=== PATIENT | female | born 1935 | race Caucasian/White ===

== ENCOUNTER 2016-06-09 13:25 | Emergency (ER) | payer OTHER ==
--- NOTE | 2016-06-09 13:50 | EDPHY ---
H & P Stated Complaint: Coughing up clear mucous;feels lightheaded/dizzy today Time Seen by Provider: 06/09/16 13:50 - Personal History Current Tetanus Diphtheria and Acellular Pertussis (TDAP): Yes - Medical/Surgical History Hx Chronic Respiratory Disease: Yes Other PMH: MS. thyroid - Social History Smoking Status: Former smoker Constitutional: Initial Vital Signs Temperature (C) 36.8 C 06/09/16 13:30 Heart Rate 84 06/09/16 13:30 Respiratory Rate 18 06/09/16 13:30 Blood Pressure 143/79 H 06/09/16 13:30 O2 Sat (%) 94 06/09/16 13:30 O2 Delivery Mode Room Air Allergies/Adverse Reactions: No Known Allergies Allergy (Verified 06/09/16 13:30) Home Medications: Medication Instructions Recorded Cephalexin [Keflex (RX)] 500 mg PO TID #30 cap 06/09/16 Levothyroxine [Synthroid 88 mcg 88 mcg PO DAILY06 06/09/16 (*)] Medical Decision Making ED Course/Re-evaluation: CHIEF COMPLAINT: Cough, lightheadedness HISTORY OF PRESENT ILLNESS: The patient is an 80 y/o female complaining of persistent chronic cough and lightheadedness onset today. She has a history of bronchiectasis for which she is followed by her spray maker. She complains of associated sternal chest pain that is reproducible with palpation and deep breathing. Denies dysuria, polyuria. REVIEW OF SYSTEMS: A 10 point review of systems was performed and is negative with the exception of the elements mentioned in the history of present illness. PHYSICAL EXAM: HR, BP, O2 Sat, RR. Temp noted General Appearance: Alert, well hydrated, appropriate, and non-toxic appearing. Head: Atraumatic without scalp tenderness or obvious injury Eyes: Pupils equal, round, reactive to light and accommodation, EOMI, no trauma , no injection. Ears: Clear bilaterally, no perforation, normal landmarks Nose: Atraumatic, no rhinorrhea, clear. Throat: There is no erythema or exudates, no lesions, normal tonsils, mucus membranes moist. Neck: Supple, 2+ carotid upstroke, nontender, no lymphadenopathy. Respiratory: No retractions, no distress, no wheezes, and no accessory muscle use. Lungs are clear to auscultation bilaterally. Cardiovascular: Regular rate and rhythm, no murmurs, rubs, or gallops. Bilateral carotid, radial, dorsalis pedis, and posterior tibial pulses intact. Good capillary refill all extremities. Gastrointestinal: Abdomen is soft, nontender, non-distended, no masses, no rebound, no guarding, no peritoneal signs. Musculoskeletal: Normal active ROM of all extremities, atraumatic. Neurological: Alert, appropriate, and interactive. The patient has normal DTRs and non-focal cranial nerves, motor, sensory, and cerebellar exam. Skin: No rashes, good turgor, no nodules on palpation. Past medical history: UTIs, IBS, optic neuritis - possible MS?, bronchiectasis Past surgical history: Noncontributory Family history: Noncontributory Social history: Nonsmoker [place]: Dr. Chaudhry Prior records reviewed including admission from 08/08/2010 for chest pain. DIAGNOSTICS/PROCEDURES/CRITICAL CARE TIME: Study: Chest x-ray Indication: Cough Results: Chest x-ray was obtained. The results of the study are 1. Cystic bronchiectasis in the right middle lobe with bilateral apical pleuroparenchymal scarring and lingular scarring, similar to previous study. 2. COPD with hyperinflation. 3. No pleural effusion, pneumothorax, or definite acute pneumonia. 4. Consider CT chest imaging if there is continued clinical concern for acute pneumonia or worsening MAC. The study was read by the radiologist, Dr. Jones. I viewed the images myself on the PACS system. The 12 lead EKG was interpreted by myself. Sinus rhythm rate 82. See hard copy and/or "tracemaster" electronic copy for interpretation. DIFFERENTIAL DIAGNOSIS: The differential diagnosis for the patient's shortness of breath and hypoxemia included but was not limited to pneumonia, myocardial infarction, acute mountain sickness, high altitude pulmonary edema, congestive heart failure, and pulmonary embolus. MEDICAL DECISION MAKING: This is an 80 y/o female who presents with a chronic cough and known bronchiectasis also complaining of mild lightheadedness onset today. Lung sounds are unremarkable and she appears well on exam. IV established. Labs drawn including CBC, CHEM, BNP, troponin, d-dimer. Chest x-ray and EKG ordered. Labs are unremarkable. Chest x-ray is unchanged from previous. EKG normal. Plan for UA. UA indicates UTI. Patient will receive one dose of Keflex here and will be discharged with a script for Keflex. She will follow up with her PCP as needed. Return precautions given. She is comfortable with this plan. - Data Points Laboratory Results: Laboratory Results 06/09/16 14:00 06/09/16 14:00 06/09/16 06/09/16 15:45 14:00 WBC 5.73 10^3/uL (3.80-9.50) RBC 4.98 10^6/uL (4.18-5.33) Hgb 15.7 g/dL (12.6-16.3) Hct 45.6 % (38.0-47.0) MCV 91.6 fL (81.5-99.8) MCH 31.5 pg (27.9-34.1) MCHC 34.4 g/dL (32.4-36.7) RDW 13.2 % (11.5-15.2) Plt Count 260 10^3/uL (150-400) MPV 8.5 L fL (8.7-11.7) Neut % (Auto) 47.2 % (39.3-74.2) Lymph % (Auto) 38.4 % (15.0-45.0) [place] % (Auto) 11.9 % (4.5-13.0) Eos % (Auto) 1.4 % (0.6-7.6) Baso % (Auto) 0.9 % (0.3-1.7) Nucleat RBC Rel Count 0.0 % (0.0-0.2) Absolute Neuts (auto) 2.71 10^3/uL (1.70-6.50) Absolute Lymphs (auto) 2.20 10^3/uL (1.00-3.00) Absolute Monos (auto) 0.68 10^3/uL (0.30-0.80) Absolute Eos (auto) 0.08 10^3/uL (0.03-0.40) Absolute Basos (auto) 0.05 10^3/uL (0.02-0.10) Absolute Nucleated RBC 0.00 10^3/uL (0-0.01) Immature Gran % 0.2 % (0.0-1.1) Immature Gran # 0.01 10^3/uL (0.00-0.10) D-Dimer 0.43 ug/mLFEU (0.00-0.50) Sodium 143 mEq/L (134-144) Potassium 4.3 mEq/L (3.5-5.2) Chloride 107 mEq/L (97-110) Carbon Dioxide 23 mEq/l (22-31) Anion Gap 13 mEq/L (8-16) BUN 12 mg/dL (7-23) Creatinine 0.7 mg/dL (0.6-1.0) Estimated GFR > 60 Glucose 96 mg/dL (70-100) Calcium 9.4 mg/dL (8.5-10.4) Troponin I < 0.012 ng/mL (0-0.034) NT-Pro-B Natriuret Pep 118 pg/mL (0-450) Urine Color YELLOW Urine Appearance CLEAR Urine pH 7.0 (5.0-7.5) Ur Specific [place] 1.009 (1.002-1.030) Urine Protein NEGATIVE (NEGATIVE) Urine Ketones NEGATIVE (NEGATIVE) Urine Blood NEGATIVE (NEGATIVE) Urine Nitrate NEGATIVE (NEGATIVE) Urine Bilirubin NEGATIVE (NEGATIVE) Urine Urobilinogen NEGATIVE EU (0.2-1.0) Ur Leukocyte Esterase TRACE H (NEGATIVE) Urine RBC 5-10 H /hpf (0-3) Urine WBC 1-3 /hpf (0-3) Ur Epithelial Cells TRACE /lpf (NONE-1+) Ur Culture Indicated? INDICATED H (NI) Urine Glucose NEGATIVE (NEGATIVE) Medications Given: Discontinued Medications Cephalexin HCl (Keflex) 500 mg PO EDNOW ONE PRN Reason: Protocol Stop: 06/09/16 16:14 Last Admin: 06/09/16 16:15 Dose: 500 mg Departure - Departure Disposition: Home, Routine, Self-Care Clinical Impression: UTI (urinary tract infection), Cough Condition: Good Instructions: Urinary Tract Infection in Women (ED) Additional Instructions: 1. Take Keflex as prescribed. Be sure to finish the entire prescription even if you feel better. 2. Call the ED in 48 hours at [phone] to get your urine culture results. 3. Follow up with your primary care provider for symptoms not improved over the next 3-4 days. 4. Use Tylenol as prescribed on the package when needed for pain or fever. Not to exceed 1 week of use. 5. Return to the ED for any worsening of condition. Referrals: Ann Perez MD [Primary Care Provider] - As per Instructions Prescriptions: Cephalexin [Keflex (RX)] 500 mg PO TID #30 cap
--- NOTE | 2016-06-09 13:55 | CPEKG ---
Heart Rate: 82 RR Interval: 732 P-R Interval: 152 QRSD Interval: 78 QT Interval: 364 QTC Interval: 425 P Glen: 76 QRS Glen: 19 T Wave Glen: 37 EKG Severity - NORMAL ECG - EKG Impression: SINUS RHYTHM Electronically Signed By: Wilder Langley 09-Jun-2016 20:16:23
[2016-06-09 14:17] LABS: % IMMATURE GRANULYOCYTES 0.2 % (0.0-1.1); ABSOLUTE IMMATURE GRANULOCYTES 0.01 10^3/uL (0.00-0.10); ADD DIFF? NO; ADD MORPH? NO; ADD SCAN? NO; ATYPICAL LYMPHOCYTE FLAG 10 (0-99); FRAGMENT RBC FLAG 10 (0-99); HEMATOCRIT 45.6 % (38.0-47.0); HEMOGLOBIN 15.7 g/dL (12.6-16.3); LEFT SHIFT FLG 0 (0-99); LIPEMIA HEMOLYSIS FLAG 90 (0-99); MEAN CELL HEMOGLOBIN 31.5 pg (27.9-34.1); MEAN CELL HEMOGLOBIN CONCENTR. 34.4 g/dL (32.4-36.7); MEAN CELL VOLUME 91.6 fL (81.5-99.8); MEAN PLATELET VOLUME 8.5 fL (8.7-11.7); PLATELET CLUMPS FLAG 0 (0-99); PLATELET COUNT 260 10^3/uL (150-400); RED BLOOD CELL COUNT 4.98 10^6/uL (4.18-5.33); RED CELL DISTRIBUTION WIDTH 13.2 % (11.5-15.2)
[2016-06-09 14:35] LABS: ANION GAP 13 mEq/L (8-16); CALCIUM 9.4 mg/dL (8.5-10.4); CARBON DIOXIDE 23 mEq/l (22-31); CHLORIDE 107 mEq/L (97-110); CREATININE 0.7 mg/dL (0.6-1.0); GLOMERULAR FILTRATION RATE > 60; GLUCOSE 96 mg/dL (70-100); POTASSIUM 4.3 mEq/L (3.5-5.2); SODIUM 143 mEq/L (134-144)
[2016-06-09 14:46] LABS: TROPONIN I < 0.012 ng/mL (0-0.034)
--- NOTE | 2016-06-09 15:03 | DX ---
Chest, Two Views June 09, 2016, 1355 Hours History: Cough, R05, Mycobacterium avium complex. Comparison: June 2015, August 2015. Findings: Cardiac silhouette is within normal range. Hyperinflation of the lungs and flattening of the hemidiaphragms similar to previous study. Pleuroparenchymal scarring bilateral lung apices, right greater than left, also similar to previous studies. Cystic bronchiectasis in the right middle lobe also similar to previous chest x-ray. Linear scarring in the lingula. No new infiltrates. Thoracic le voscoliosis. Lumbar dextroscoliosis. Impressions 1. Cystic bronchiectasis in the right middle lobe with bilateral apical pleuroparenchymal scarring an d lingular scarring, similar to previous study. 2. COPD with hyperinflation. 3. No pleural effusion, pneumothorax, or definite acute pneumonia. 4. Consider CT chest imaging if there is continued clinical concern for acute pneumonia or worsening MAC.
[2016-06-09 16:02] LABS: COLOR YELLOW; LEUKOCYTE ESTERASE,URINE TRACE (NEGATIVE); NITRITE,URINE NEGATIVE (NEGATIVE)
[2016-06-09] MEDS ORDERED: CEPHALEXIN 500 MG CAP PO ONE (16:13)
[2016-06-09 16:34] VITALS: BP 133/81; PULSE 88; RESP 17; TEMP 97.9; O2SAT 92
== END 2016-06-09 16:34 | disposition home or self-care (01) ==
DX: N39.0 Urinary tract infection, site not specified (principal); B96.89 Other specified bacterial agents as the cause of diseases classified elsewhere; R05 Cough; Z87.891 Personal history of nicotine dependence

== ENCOUNTER → 2017-03-04 | Outpatient (CLI) | payer OTHER | LOC: CIMAGING 16:18 | PROVIDERS: ATTEND Family Medicine | DX: M25.552 Pain in left hip (principal) | CPT/HCPCS: 73502-PO ==

== ENCOUNTER → 2017-03-26 | Outpatient (CLI) | payer OTHER | LOC: FIMAGING 09:42 | PROVIDERS: ATTEND Internal Medicine Critical Care Medicine | DX: J47.9 Bronchiectasis, uncomplicated (principal) ==

== ENCOUNTER → 2018-05-11 | Outpatient (CLI) | payer OTHER | LOC: FIMAGING 15:16 | PROVIDERS: ATTEND Internal Medicine Critical Care Medicine | DX: J98.4 Other disorders of lung (principal); J47.9 Bronchiectasis, uncomplicated; A31.0 Pulmonary mycobacterial infection ==